=== PATIENT | male | born 2000 | race Caucasian/White ===

== ENCOUNTER 2022-11-24 00:39 | Emergency (ER) | payer OTHER ==
[~2022-11-24] VITALS: Ht 172.7 cm; Wt 57.1 kg
[2022-11-24 00:49] VITALS: BP 135/83
[2022-11-24] MEDS ORDERED: acetaminophen 325mg tablet PO ONE (02:10)
[2022-11-24] MEDS ORDERED: ondansetron 4mg rapidly disintigrating tab PO ONE (02:10)
[2022-11-24] MEDS ORDERED: AMOX500C2 PO (02:10)
[2022-11-24] MEDS ORDERED: amoxicillin 250mg capsule PO ONE (02:10)
== END 2022-11-24 02:24 | disposition home or self-care (01) ==
LOC: ER 00:40
DX: K08.89 Other specified disorders of teeth and supporting structures (principal); Z79.899 Other long term (current) drug therapy
CPT/HCPCS: 99284